=== PATIENT | male | born 1955 | race Two or more races ===

== ENCOUNTER 2018-12-28 13:27 | Observation (INO) | payer MEDICARE ==
[2018-12-28] MEDS ORDERED: VERAPAMIL 2.5 MG/ML 2 ML VIAL ** 5 mg/2 ml ONE (13:36)
[2018-12-28] MEDS ORDERED: nitroGLYCERIN DRIP* 25,000 MCG/250 ML BTL ONE (13:36)
[2018-12-28] MEDS ORDERED: Lidocaine 1% INJ* 10 MG/ML 30 ML SDV ONE (13:36)
[2018-12-28] MEDS ORDERED: Heparin(*) 1000 UNIT/ML 10 ML VIAL CATH LAB IV ONE (13:36)
[2018-12-28] MEDS ORDERED: Midazolam* 1 MG/ML 5 ML VIAL (5 MG) ONE (13:37)
[2018-12-28] MEDS ORDERED: fentaNYL* 50 MCG/ML 2 ML VIAL (100 MCG VIAL) ONE (13:37)
[2018-12-28] MEDS ORDERED: Heparin 2 UNITS/ML IVPREMIX* 3,000 UNIT/1,500 ML BAG IV ONE (13:38)
[2018-12-28] MEDS ORDERED: Iodixanol 320 (CONTRAST) 100 ML SDV ONE (13:40)
--- NOTE | 2018-12-28 13:48 | ED ---
HPI Cardiac - HPI Summary HPI Summary: This patient is a 50 year old male brought in by EMS presenting to [facility] for possible STEMI. STEMI Alert called at 0127 and seen by ED Provider at 0127. EMS reports the patient was found unresponsive and had an apneic period. The patient was conscious and breathing upon arrival. The patient reports back pain and occipital headache. He denies chest pain, vomiting. He states he takes cholesterol medication. He has a Hx of HTN per his . 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, EMS Onset/Duration: Started Minutes Ago Associated Signs and Symptoms: Positive: Back Pain - Risk Factors Cardiac Risk Factors: Hypertension - Allergy/Home Medications Allergies/Adverse Reactions: Allergies Allergy/AdvReac Type Severity Reaction Status Date / Time No Known Drug Allergies Allergy na Verified 12/28/18 14:33 Home Medications: Home Medications Aspirin EC TAB* [Ecotrin EC Low Dose 81 MG*] 81 mg PO DAILY 12/28/18 [History Confirmed 12/28/18] Atorvastatin* [Lipitor*] 40 mg PO QPM 12/28/18 [History Confirmed 12/28/18] Lisinopril/HCTZ 10/12.5(NF) [Zestoretic 10/12.5(NF)] 1 tab PO DAILY 12/28/18 [ History Confirmed 12/28/18] PMH/Surg Hx/FS Hx/Imm Hx Endocrine/Hematology History: Denies: Hx Diabetes Cardiovascular History: Reports: Hx Hypertension Infectious Disease History: Denies: Traveled Outside the [place] in Last 30 Days - Family History Known Family History: Negative: Diabetes - Social History Lives: With Family Hx Substance Use: No Review of Systems Negative: Chest Pain Positive: Other - Apnea, resolved Neurological: Other - LOC, Unresponsive Positive: Headache All Other Systems Reviewed And Are Negative: Yes NIH Scale - NIH Scale Level of Consciousness: Alert/Keenly Responsive Ask Patient the Month and His/Her Age: Both Correct Ask Pt to Open/Close Eyes and [place] Helper/Release Non-Paretic Hand: Both Correctly Best Gaze (Only Horizontal Eye Movement): Normal Visual Field Testing: No Visual Loss Facial Paresis-Pt to Smile & Close Eyes or Grimace Symmetry: Normal/Symmetrical Motor Function - Right Arm: No Drift-Holds 10 Seconds Motor Function - Left Arm: No Drift-Holds 10 Seconds Motor Function - Right Leg: No Drift-Holds 10 Seconds Motor Function - Left Leg: No Drift-Holds 10 Seconds Limb Ataxia-Must be out of Proportion to Weakness Present: Absent Sensory (Use Pinprick to Test Arms/Legs/Trunk/Face): Normal Best Language (Describe Picture, Name Items): No Aphasia Dysarthria (Read Several Words): Normal Extinction and Inattention: No Abnormality Total Score: 0 Physical Exam - Summary Physical Exam Summary: Appearance: The patient is well-nourished in no acute distress and in no acute pain. Skin: The skin is warm and dry and skin color reflects adequate perfusion. HEENT: The head is normocephalic and atraumatic. The pupils are equal and reactive. The conjunctivae are clear and without drainage. Nares are patent and without drainage. Mouth reveals moist mucous membranes and the throat is without erythema and exudate. The external ears are intact. The ear canals are patent and without drainage. The tympanic membranes are intact. Neck: The neck is supple with full range of motion and non-tender. There are no carotid bruits. There is no neck vein distension. Respiratory: Chest is non-tender. Lungs are clear to auscultation and breath sounds are symmetrical and equal. Cardiovascular: Heart is regular rate and rhythm. There is no murmur or rub auscultated. There is no peripheral edema and pulses are symmetrical and equal. Abdomen: The abdomen is soft and non-tender. There are normal bowel sounds heard in all four quadrants and there is no organomegaly palpated. Musculoskeletal: There is no back tenderness noted. Extremities are non-tender with full range of motion. There is good capillary refill. There is no peripheral edema or calf tenderness elicited. Neurological: Patient is alert and oriented to person, place and time. The patient has symmetrical motor strength in all four extremities. Arrived poorly responsive. GCS was seemingly 3, now GCS is 15. Relatively recovered and answering questions.. Psychiatric: The patient has an appropriate affect and does not exhibit any anxiety or depression. Triage Information Reviewed: Yes Vital Signs Reviewed: Yes Diagnostics - Laboratory Result Diagrams: 12/28/18 13:30 12/28/18 13:30 Lab Statement: Any lab studies that have been ordered have been reviewed, and results considered in the medical decision making process. - Radiology CXR Radiology Interpretation Completed By: Radiologist Summary of Radiographic Findings: No active cardiopulmonary disease. ED Provider has reviewed this report. - CT CT Chest/ABD/PEL CT Interpretation Completed By: Radiologist Summary of CT Findings: 1. Diverticulosis. 2. Ectasia of the ascending thoracic aorta. 3. No acute noncontrast CT Pathology of the visualized chest, abdomen, or pelvis. Please note that noncontrast CT is insensitive for the detection of aortic dissection. ED Provider has reviewed this report. CT Cervical Spine CT Interpretation Completed By: Radiologist Summary of CT Findings: No fracture of cervical spine is noted. ED Provider has reviewed this report. CT Brain CT Interpretation Completed By: Radiologist Summary of CT Findings: No active intracranial pathology. ED Provider has reviewed this report. - EKG Transthoracic 1550 Summary of EKG Findings: There is normal left ventricular systolic function. The estimated ejection fraction is 55-60%. Global left ventricular wall motion and contractility are within normal limits. The left ventricular chamber size is normal. The right ventrical is mildly dilated. The right ventricular global systolic function is normal. The right atrium is mildly dilated. No pulmonary hypertnesion is noted. There is mild dilation of the ascending aorta. There is no prior echocardiogram to compare with at this time. Report read and signed by Vikram Cabral MD. ED Provider has reviewed this report. 1329 Cardiac Rate: Bradycardia EKG Rhythm: Sinus Bradycardia Summary of EKG Findings: RBBB, ST-Elevation in septal leads. 1341 Cardiac Rate: Bradycardia EKG Rhythm: Sinus Bradycardia - 58 BPM Summary of EKG Findings: RBBB, St-Elevations in the septal leads. Disposition - Course Course Of Treatment: Mr. Sanchez was brought in by EMS. They called in stating they were called out to see a man who collapsed at work, was diaphoretic and poorly responsive and that they were worried about a STEMI. I was notified and called them back to request an EKG and at that point they said that the patient had coded and that this it turned into a code. An ABC alert was called and the patient was met in room 14. Apparently what actually happened was that the patient became apneic or hypoxic neck and they attempted to place an orogastric tube and he began to be responsive. They were bag assisting his breathing when he came in and he was immediately transferred to our [place] and placed on our monitor. His vitals were stable at that point. He was poorly responsive and not answering questions. The ABC alert was canceled. They did bring an EKG with them which I reviewed immediately and showed some ST elevation in the septal leads. A STEMI was called at that point. While STEMI team was assembling and we were evaluating the patient he began to wake up and suddenly became responsive and reported no chest pain or shortness of breath but rather we're able to piece together the story that he has been having some back pain especially when he stands for a long time at work. Today he had back pain and went outside and then went back inside and that's all he remembers. Clinically he had no evidence for a AAA. Dr. mullen reviewed his EKG and felt that it was likely not a STEMI given the patient's presentation. The brim raiser was used to speak with both the patient and his when she arrived. It appears as though he has recently been started on lisinopril and a statin. The patient's main complaint was here was that he had pain in the back of his head and upper neck. CT scans were obtained and were unremarkable. I could not do CTA as he has renal insufficiency that is worsened. Noncontrasted CT scan was unremarkable. It's unclear exactly what happened my best guess is that he had a combination of dehydration, no lisinopril prescription and some mild vagal from his back pain which caused him to be syncopal. He got some fluid in the emergency department and asked the hospitalist to evaluate him for admission. - Diagnoses Provider Diagnoses: Syncope, Dehydration - Physician Notifications Discussed Care Of Patient With: Tasha Waite - Hospitalist Instructed by Provider To: Admit As Observation - Critical Care Time Critical Care Time: 30-74 min Discharge - Sign-Out/Discharge Documenting (check all that apply): Patient Departure - Admission All imaging exams completed and their final reports reviewed: Yes Patient Received Moderate/Deep Sedation with Procedure: No - Discharge Plan Condition: Stable Disposition: ADMITTED TO [facility] - Billing Disposition and Condition Condition: STABLE Disposition: Admitted to [facility] - Attestation Statements Document Initiated by Scribe: Yes Documenting Scribe: Kiran Diaz Provider For Whom Scribe is Documenting (Include Credential): Primo Abraham MD Scribe Attestation: IKiran, scribed for Primo Abraham MD on 12/28/18 at 2115. Scribe Documentation Reviewed: Yes Provider Attestation: The documentation as recorded by the scribe, Kiran Diaz accurately reflects the service I personally performed and the decisions made by me, Primo Abraham MD Status of Scribe Document: Viewed
[2018-12-28 13:57] LABS: ABS Basophils 0 10^3/ul (0-0.2); ABS Eosinophils 0.2 10^3/ul (0-0.6); ABS Lymphocytes 2.3 10^3/ul (1.0-4.8); ABS Monocytes 0.5 10^3/ul (0-0.8); ABS Neutrophils 4.5 10^3/ul (1.5-7.7); ABS Nucleated RBC 0 10^3/ul; Eosinophil % 2.6 %; Hematocrit 37 % (36-46); Hemoglobin 12.1 g/dL (14.0-18.0); Lymphocyte % 30.6 %; Mean Corpuscular HGB Conc 33 g/dL (31-36); Mean Corpuscular Hemoglobin 27 pg (27-31); Mean Corpuscular Volume 83 fL (80-94); Mean Platelet Volume 7.8 fL (7.4-10.4); Nucleated Red Blood Cells % 0; Platelet Count 348 10^3/uL (150-450); Red Blood Count 4.43 10^6 /uL (4.18-5.48); Red Cell Distribution Width 14 % (10.5-15); White Blood Count 7.6 10^3/uL (3.5-10.8)
[2018-12-28 14:02] LABS: INR 0.93 (0.77-1.02)
[2018-12-28 14:08] LABS: ALT 29 U/L (7-52); AST 25 U/L (13-39); Albumin 4.2 g/dL (3.2-5.2); Albumin/Globulin Ratio 1.3 (1-3); Alkaline Phosphatase 73 U/L (34-104); Anion Gap 8 mmol/L (2-11); Blood Urea Nitrogen 44 mg/dL (6-24); CO2 Carbon Dioxide 21 mmol/L (22-32); Calcium 9.1 mg/dL (8.6-10.3); Chloride 108 mmol/L (101-111); EGFR African American 32.3 (>60); EGFR Non-African American 26.7 (>60); Globulin 3.2 g/dL (2-4); Glucose 116 mg/dL (70-100); Magnesium 2.2 mg/dL (1.9-2.7); Sodium 137 mmol/L (135-145); Total Protein 7.4 g/dL (6.4-8.9)
[2018-12-28 14:09] LABS: Troponin I 0.01 ng/mL (<0.04)
[2018-12-28 14:17] LABS: Alcohol < 10 mg/dL (<10)
[2018-12-28 14:32] LABS: TSH (Thyroid Stimulating Horm) 1.15 mcIU/mL (0.34-5.60)
[2018-12-28] MEDS ORDERED: NS 0.9% 1000 ML** 1,000 ML IV ONE ×2 (14:37→15:11)
[2018-12-28 15:55] LABS: Urine Appearance Clear; Urine Bacteria Absent (Absent); Urine Bilirubin Negative (Negative); Urine Blood Negative (Negative); Urine Color Yellow; Urine Glucose Negative (Negative); Urine Ketones Negative (Negative); Urine Nitrite Negative (Negative); Urine Protein 1+(30 mg/dL) (Negative); Urine Red Blood Cell Trace(0-2/hpf) (Absent); Urine Squamous Epithelial Cell Present (Absent); Urine Urobilinogen Negative (Negative); Urine White Blood Cell Trace(0-5/hpf) (Absent)
--- NOTE | 2018-12-28 16:06 | ECHO ---
Patient: RL LEWIS [facility] Rec#: [id number] : 1955 Date: 12/28/2018 Age: 63y Height: 170 cm / 66.9 in Weight: 54 kg / 119.0 lbs Sex: M BSA: 1.62 Room#: -14 Admit Date#: 12/28/2018 Type: Inpatient Referring: Primo Abraham MD Reading: Vikram Cabral MD Radio Machinist: Anushka Cueto RDCS CC: Karen Moore MD Transthoracic Echocardiogram Indication: Pulmonary embolism BP: 116/74 HR: 56 Rhythm: Bradycardia Findings History: HTN, HLD. Technical Comments: The study quality is good. Completed at 1550. Left Ventricle: The left ventricular chamber size is normal. Global left ventricular wall motion and contractility are within normal limits. There is normal left ventricular systolic function. The estimated ejection fraction is 55-60%. The assessment of diastolic function is non-diagnostic. Left Atrium: The left atrial chamber size is normal. Right Ventricle: Moderator Band present. The right ventricle is mildly dilated. The right ventricular global systolic function is normal. Right Atrium: The right atrium is mildly dilated. Aortic Valve: The aortic valve is trileaflet. The aortic valve leaflets are mildly thickened. There is no evidence of aortic regurgitation. There is no evidence of aortic stenosis. Mitral Valve: The mitral valve leaflets are mildly thickened. There is a trace of mitral regurgitation. Tricuspid Valve: The tricuspid valve leaflets are normal. There is trace to mild tricuspid regurgitation. The right ventricular systolic pressure is estimated at 25 mmHg. No pulmonary hypertension is noted. Pulmonic Valve: The pulmonic valve appears normal. There is no evidence of pulmonic regurgitation. There is no pulmonic stenosis. Pericardium: There is no significant pericardial effusion. Aorta: There is mild dilatation of the ascending aorta. There is no dilatation of the aortic arch. The aortic root is normal in size. Pulmonary Artery: The main pulmonary artery is not well visualized. Venous: The inferior vena cava appears normal in size. There is a greater than 50% respiratory change in the inferior vena cava dimension. Conclusions There is normal left ventricular systolic function. The estimated ejection fraction is 55-60%. Global left ventricular wall motion and contractility are within normal limits. The left ventricular chamber size is normal. The right ventricle is mildly dilated. The right ventricular global systolic function is normal. The right atrium is mildly dilated. No pulmonary hypertension is noted. There is mild dilatation of the ascending aorta. There is no prior echocardiogram available to compare with at this time. Measurements Name Value Normal Range RVIDd (AP) 2D 2.8 cm (0.9 - 2.6) RVDdMajor (2D) 5 cm (2.2 - 4.4) RAd ISD 4CH 5.2 cm (3.4 - 4.9) RA (A4C)W 3.6 cm (2.9 - 4.6) IVSd (2D) 1.1 cm (0.6 - 1) LVPWd (2D) 1.1 cm (0.6 - 1) LVIDd (2D) 4.5 cm (3.6 - 5.4) LVIDs (2D) 3.6 cm - LV FS (2D) 19 % (25 - 45) Aortic Annulus 1.8 cm (1.4 - 2.6) Ao root diameter (2D) 3.5 cm (2.1 - 3.5) Ascending Ao 4 cm (2.1 - 3.4) Aortic arch 2.2 cm (1.8 - 3.4) LA dimension (AP) 2D 2.9 cm (2.3 - 3.8) LAd ISD 4CH 5 cm (2.9 - 5.3) LA ISD 4CH W 4.2 cm (2.5 - 4.5) Name Value Normal Range LA ESV BP (A/L) index 35 ml/m2 - Name Value Normal Range MV E-wave Vmax 0.8 m/sec - MV deceleration time 239 msec - MV A-wave Vmax 1 m/sec - MV E:A ratio 0.8 ratio - LV septal e' Vmax 0.06 m/sec - LV lateral e' Vmax 0.1 m/sec - LV E:e' septal ratio 13.3 ratio - LV E:e' lateral ratio 8 ratio - Name Value Normal Range AV Vmax 1.7 m/sec - AV VTI 32 cm - AV peak gradient 12 mmHg - AV mean gradient 4 mmHg - LVOT Vmax 0.9 m/sec - LVOT VTI 21 cm - LVOT peak gradient 4 mmHg - LVOT mean gradient 2 mmHg - Name Value Normal Range TR Vmax 2.3 m/sec - TR peak gradient 22 mmHg - RAP 3 mmHg - RVSP 25 mmHg - IVC diameter 1.5 cm - Name Value Normal Range PV Vmax 1 m/sec - PV peak gradient 4 mmHg -
[2018-12-28] MEDS ORDERED: Acetaminophen TAB* 325 MG PO PRN (16:59)
[2018-12-28] MEDS ORDERED: NS 0.9% 1000 ML** 1,000 ML IV SCH (17:00)
[2018-12-28] MEDS ORDERED: Atorvastatin* 40 MG TAB PO SCH (18:00)
--- NOTE | 2018-12-28 20:21 | HP ---
CC: Dr. Moore * HISTORY AND PHYSICAL: DATE OF ADMISSION: 12/28/18 PRIMARY CARE PROVIDER: Dr. Moore. ATTENDING PHYSICIAN WHILE IN THE HOSPITAL: Tasha Waite DO * (dictated by Kofi Nicolas NP) CHIEF COMPLAINT: 1. Syncope. 2. Neck pain. HISTORY OF PRESENT ILLNESS: Mr. Sanchez is a 63-year-old male with a past medical history significant for hypertension, neck and upper back pain, cholesterol who presented to the emergency room by EMS after possible syncopal episode. 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 Sometimes his upper back and neck pain is worse than others. Due to the increased neck pain, he went outside to stretch and did some exercises. He returned back to the kitchen to prepare some food in the restaurant and then had a syncopal episode where a worker next to him caught him and lowered him to the ground. The patient states that he does not remember any of the events after that. He reports that he laid on the ground for approximately 2 to 3 minutes until EMS arrived and then was brought to the emergency room. He remembers seeing lights in the ambulance, but does not remember full course of details of riding to the hospital in the ambulance. The patient denies any dizziness or lightheadedness prior to the syncopal episode. He denies feeling any fatigue. Denies any recent illnesses. Denies any fever, chill, chest pain, edema, cough, hemoptysis, or shortness of breath. Denies any nausea, vomiting, diarrhea, abdominal pain, hematuria, dysuria. Denies any frequent weakness on 1 side. Denies any visual complaints, dysphagia , arthralgias, myalgias, rashes, lesions, or open sores. The patient reports that he was in his normal state of health this morning. He also reports that he recently started a new blood pressure med approximately 2 weeks ago. En route to the emergency room, EMS called the patient as an ABC alert and due to the patient having agonal respirations and an episode of apnea, the patient was then changed to a STEMI and STEMI was called when the patient arrived at the hospital. Dr. Dockery came down to evaluate the patient and the STEMI was canceled. The patient had routine lab work drawn and an EKG. Lab work showed a BUN and creatinine of 44 and 2.45, which is elevated from his baseline. His troponin was 0.01. The patient reports that his neck pain and upper back pain have subsided since being in the emergency room. Again, denied any chest pain. Denied any shortness of breath. Denied any fever or chills. He denies any dizziness prior to his syncopal episode. Due to his syncope, we were asked to see and evaluate him for admission. PAST MEDICAL HISTORY: 1. Hypertension. 2. Back pain. 3. Hypercholesterolemia. PAST SURGICAL HISTORY: No surgical history. HOME MEDICATIONS: Include: 1. Aspirin 81 mg p.o. daily. 2. Atorvastatin 40 mg p.o. q.p.m. 3. Lisinopril/hydrochlorothiazide 10/12.5 one tablet p.o. daily. ALLERGIES: No known drug allergies. FAMILY HISTORY: Reviewed and noncontributory. SOCIAL HISTORY: The patient reports that he quit smoking approximately 6 months ago. Prior to that, he smoked a half a pack to 3 quarters of pack a day for 40 years. He also reports that he used to drink daily. He quit drinking 6 months ago. Denies any illicit drug use. He works at a restaurant. He is . Surrogate decision maker in the event he is unable to make his own decisions is his or his boss. He is a full code. REVIEW OF SYSTEMS: He denies any fever, chills, unintended weight loss. Denies any chest pain or edema. No cough, hemoptysis, or shortness of breath. No nausea, vomiting, diarrhea, or abdominal pain. No gross hematuria or dysuria. Denies any weakness or sensory loss. Denies any visual complaints. No dysphagia, arthralgias, myalgias, rashes, lesions, open sores. Denies any psychosis or anxiety. PHYSICAL EXAMINATION GENERAL: At this time, Mr. Sanchez is a 63-year-old male. He is resting on the stretcher in the emergency room. He is in no acute distress. He is alert and oriented x3. VITAL SIGNS: 151/80, heart rate is 65, respirations 16, O2 saturation 100% on room air, temperature was 97.5. HEENT: Head is atraumatic, normocephalic. Eyes: EOMs are intact. Sclerae anicteric and not pale. Oral mucosa appeared to be moist. Pupils are equal and reactive to light. NECK: Supple. No C spine tenderness. LUNGS: Clear to auscultation bilaterally. No wheezes, rales, or rhonchi. CARDIAC: S1, S2. Regular rate and rhythm. No murmurs, rubs, or gallops. ABDOMEN: Soft and nontender. Bowel sounds are present x4. EXTREMITIES: Pedal pulses are +2 bilaterally. He is able to move all 4 extremities with 5/5 strength. He has no lower extremity edema. NEUROLOGIC: He is awake, alert, oriented x3. Speech is clear. Thought process intact. Handgrips are equal. Smile is equal. Tongue is midline. There is no facial asymmetry. No pronator drift. Leg strength is equal. Push- pull is intact. Cranial nerves II through XII are grossly intact. SKIN: Intact. DIAGNOSTIC STUDIES/LAB DATA: WBCs are 7.6, RBCs 4.43, hemoglobin 12.1, hematocrit was 37, platelet count was 348. INR was 0.93. Sodium 137, potassium 5.0, chloride 108, carbon dioxide was 21, anion gap was 8, BUN was 44 , creatinine 2.45, glucose 116. Lactic acid 0.9. Calcium 9.1. Magnesium 2.2. T-bili was 0.30, ASTs were 25, ALTs were 29, alkaline phosphatase was 73. Troponin was 0.01. TSH was 1.15. Urine was within normal limits except for protein that was 1+ and squamous epithelial cells were present. Serum alcohol was less than 10. Transthoracic echocardiogram was completed. Normal left ventricular systolic function, estimated ejection fraction of 55% to 60%, the global left ventricular wall motion and contractility are within normal limits, left ventricular chamber size is normal, right ventricle is mildly dilated, the right ventricular global systolic function was normal, right atrium is mildly dilated, no pulmonary hypertension was noted, there is mild dilation of the ascending aorta. There is no prior echo to compare. He had a CT of the chest, abdomen, and pelvis, radiologist's impression: Diverticulosis, ectasia of the ascending thoracic aorta, no acute noncontrast CT pathology to visualize of the chest, abdomen, and pelvis. Please note this noncontrast CT is insensitive for detection of aortic dissection. He had a CT of the C spine, no fracture of the cervical spine. He had a chest x- ray, radiologist's impression: No active cardiopulmonary disease. He had a CT of the brain, no acute intracranial pathology. He had an EKG, which showed sinus bradycardia at a rate of 58 with a right bundle-branch block, peak Ts. ASSESSMENT AND PLAN: Mr. Sanchez is a 63-year-old male with a past medical history of hypertension, hyperlipidemia who presented to the emergency room after a suspected syncopal episode while at work. He will be admitted under observation for: 1. Syncope. Unclear cause of his syncopal episode. I will check orthostatic vital signs. We will monitor him on telemetry overnight. He did have a transthoracic echocardiogram, which was within normal limits. At this time, the patient has no further episodes. He has no neuro deficits. 2. Acute kidney injury. The patient does have a bump in his BUN and creatinine off of his baseline. We will give him IV hydration. I will repeat a BMP in the a.m. I suspect this is related to mild dehydration and possibly in combination of starting lisinopril with hydrochlorothiazide. 3. Hypertension. I am going to hold his lisinopril with hydrochlorothiazide at this time. 4. Hyperlipidemia. We will continue his atorvastatin as previously prescribed. 5. FEN. He can have a regular diet. 6. Code status is full code. 7. DVT prophylaxis. I will place him on heparin subcu. 8. Disposition. He will be placed on telemetry as observation. TIME SPENT: Time spent on this admission was 60 minutes, greater than half the time was spent at the bedside reviewing events leading thus far to his hospitalization, performing my physical exam, and implementing my plan of care. I have discussed this with my attending, Dr. Tasha Waite; she is in agreement with my plan. KOFI NICOLAS, IMPROVEMENT NURSE [id number]/[facility] #: [id number] [place]
[2018-12-28] MEDS: Heparin VIAL(*) 5000 UNITS/ML VIAL (FIVE THOUSAND) SUBCUT SCH (22:03)
[2018-12-29] MEDS: Heparin VIAL(*) 5000 UNITS/ML VIAL (FIVE THOUSAND) SUBCUT SCH (05:17)
[2018-12-29 07:01] LABS: BUN/Creatinine Ratio 19.4 (8-20); Calcium 8.4 mg/dL (8.6-10.3); EGFR African American 50.9 (>60); EGFR Non-African American 42.1 (>60); HDL Cholesterol 50.1 mg/dL; Potassium 4.8 mmol/L (3.5-5.0)
[2018-12-29] MEDS ORDERED: Aspirin EC TAB* 81 MG TAB.EC PO SCH (09:00)
[2018-12-29 12:17] VITALS: BP 143/74
--- NOTE | 2018-12-30 23:00 | DS ---
CC: Dr. Moore * DISCHARGE SUMMARY: DATE OF ADMISSION: 12/28/18 DATE OF DISCHARGE: 12/29/18 PRIMARY CARE PHYSICIAN: Dr. Moore. DISPOSITION ON DISCHARGE: Good, home. PRIMARY DIAGNOSES: Include: 1. Syncope. 2. Acute on chronic kidney disease. SECONDARY DIAGNOSES: Include: 1. Hypertension. 2. Chronic back pain. 3. Hypercholesterolemia. MEDICATIONS ON DISCHARGE: Include: 1. Aspirin 81 mg daily. 2. Atorvastatin 40 mg in the evening. 3. Combination of lisinopril/hydrochlorothiazide 10/12.5 mg 1 tab daily. PERTINENT LABORATORY DATA: Creatinine on presentation 2.45, decreased to 1.65 at the time of discharge. Received additional fluid in addition prior to discharge. Troponin I 0.01 on 3 consecutive checks. TSH 1.15. Total cholesterol 137, LDL 77, HDL is 50. Urine tox negative for alcohol. PERTINENT IMAGING STUDIES: Chest, abdomen, and pelvis CT, impression: Diverticulosis, ectasia of the ascending thoracic aorta. No acute noncontrast CT pathology of the visualized chest, abdomen, or pelvis. Brain CT: No acute intracranial pathology. CT cervical spine, impression: No fractures of the cervical spine are noted. HISTORY OF PRESENT ILLNESS AND HOSPITAL COURSE: This is a 63-year-old Croatian male , primary language is Croatian, who presented to the hospital with syncope, en route , was noticed to have what was thought to be agonal breathing with CPR started, discontinued upon admission, which was then thought to be a STEMI upon arrival, which ultimately was not a STEMI. He was then admitted to the hospitalist service after both ABC and STEMI alerts were canceled. 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 Ultimately, there was no documented cardiac arrest nor ST elevated SC, certainly corroborated by normal labs as indicated above and negative troponins. In addition, a transthoracic echocardiogram was performed, which was not detailed above, now detailed here; LVEF is 50% to 60%, normal LV systolic function, global wall motion and contractility are normal, mildly dilated right ventricle with normal systolic function, otherwise normal valves. He received fluid for what was thought to be dehydration in the setting of MONIKA with improvement as indicated above. He was able to ambulate around the unit. He had no complaints including absence of pain despite brief CPR. syncopal episode after prolonged episode of standing on his feet upwards of 10 hours at work without drinking any fluid. He was counseled to stay hydrated, sit occasionally, potentially use compression stockings. He acknowledges understanding. Conversation was had using telephone track announcer with both patient and his . All questions were answered. At followup please; 1. Evaluate BMP in the future at your discretion, although on discharge, creatinine is baseline per our records. 2. No other specific labs or vitals that need followup. Urine culture is negative. Reasons to return to the hospital include, but are not limited to recurrent or worsening symptoms, chest pain, shortness of breath, nausea, vomiting, lightheadedness, loss of consciousness or near loss of consciousness, bleeding from any source, inability to obtain or tolerate medications discussed with the patient and his . They acknowledged understanding. TIME SPENT: Greater than 45 minutes were spent on discharge of this patient, of which greater than half was spent [id number] with the patient. [id number] #: [id number]
== END 2018-12-29 12:17 | disposition home or self-care (01) ==
LOC: ED 13:27 → MEDTELE 16:59
PROVIDERS: ADMIT Hospitalist; ATTEND Internal Medicine
DX: R55 Syncope and collapse (principal); N18.9 Chronic kidney disease, unspecified; I10 Essential (primary) hypertension; M54.9 Dorsalgia, unspecified; G89.29 Other chronic pain; E78.00 Pure hypercholesterolemia, unspecified; Z79.82 Long term (current) use of aspirin; M54.2 Cervicalgia
CPT/HCPCS: 36415; 70450; 71045; 71250; 72125; 74176; 80048; 80053; 80061; 80320; 81003; 81015; 83605; 83735; 84443; 84484; 85025; 85610; 87086; 93005; 93306; 96374; 99284; A9270-GY; G0378; G0480; J1644; J2250; J3010

== ENCOUNTER 2019-01-14 15:54 | Emergency (ER) | payer MEDICARE ==
[2019-01-14] MEDS ORDERED: Lidocaine PATCH 5%* 1 PATCH TRANSDERM ONE (17:15)
[2019-01-14] MEDS ORDERED: Acetaminophen TAB* 325 MG PO ONE (17:15)
--- NOTE | 2019-01-14 17:44 | ED ---
Neck Pain - HPI Summary HPI Summary: 64 year old male presents with neck pain today. He states he is looking down for a long period of time and looked up and felt some pain in his neck. He denies any weakness. No numbness or tingling. No chest pain or shortness of breath. Denies any history of neck pain. States he has full range of motion his neck and pain has been improving. Denies any visual changes or headache. Hasn't taking anything for symptoms. - History of Current Complaint Chief Complaint: EDNeckComplaint Stated Complaint: NECK PAIN PER PT Time Seen by Provider: 01/14/19 17:01 Pain Intensity: 5 - Allergies/Home Medications Allergies/Adverse Reactions: Allergies Allergy/AdvReac Type Severity Reaction Status Date / Time No Known Drug Allergies Allergy na Verified 12/28/18 14:33 PMH/Surg Hx/FS Hx/Imm Hx Endocrine/Hematology History: Denies: Hx Diabetes Cardiovascular History: Reports: Hx Hypertension Sensory History: Denies: Hx Contacts or Glasses, Hx Hearing Aid Opthamlomology History: Denies: Hx Contacts or Glasses Infectious Disease History: No Infectious Disease History: Denies: Traveled Outside the [place] in Last 30 Days - Family History Known Family History: Positive: Non-Contributory Negative: Diabetes - Social History Alcohol Use: None Hx Substance Use: No Substance Use Type: Reports: None Smoking Status (MU): Former Smoker Review of Systems Negative: Fever Negative: Chest Pain Negative: Shortness Of Breath Positive: Myalgia - neck pain All Other Systems Reviewed And Are Negative: Yes Physical Exam Triage Information Reviewed: Yes Vital Signs On Initial Exam: Initial Vitals Temp Pulse Resp BP Pulse Ox 98.6 F 76 16 127/74 98 01/14/19 15:59 01/14/19 15:59 01/14/19 15:59 01/14/19 15:59 01/14/19 15:59 Vital Signs Reviewed: Yes Appearance: Positive: Well-Appearing Skin: Positive: Warm, Dry Head/Face: Positive: Normal Head/Face Inspection Eyes: Positive: Normal, Conjunctiva Clear ENT: Positive: Pharynx normal Respiratory/Lung Sounds: Positive: Clear to Auscultation, Breath Sounds Present Cardiovascular: Positive: Normal, RRR Musculoskeletal: Positive: Strength/ROM Intact - neck, Other - tenderness lower neck, good pulses, good raw hide trimmer strength, sensation grossly intact arm, full ROM arm and neck Neurological: Positive: Normal Psychiatric: Positive: Normal Diagnostics - Vital Signs Vital Signs Temp Pulse Resp BP Pulse Ox 01/14/19 15:59 98.6 F 76 16 127/74 98 - Laboratory Lab Statement: Any lab studies that have been ordered have been reviewed, and results considered in the medical decision making process. - Radiology neck Radiology Interpretation Completed By: Radiologist Summary of Radiographic Findings: IMPRESSION: DEGENERATIVE DISC DISEASE. Neck Course/Dx - Course Course Of Treatment: 64 year old male presents with neck pain today. He states he is looking down for a long period of time and looked up and felt some pain in his neck. He denies any weakness. No numbness or tingling. No chest pain or shortness of breath. Denies any history of neck pain. States he has full range of motion his neck and pain has been improving. Denies any visual changes or headache. Hasn't taking anything for symptoms. On exam has mild tenderness over lower neck. Full range of motion. neurovascular intact. X-ray shows degenerative changes. gave lidocaine patch and Tylenol and pain resolved. Kyree prescribe lidocaine patch. willl have follow-up with primary. Patient understands agrees with plan. - Diagnoses Differential Dx/HQI/PQRI: Positive: Sprain, Strain Provider Diagnoses: Neck pain Discharge - Sign-Out/Discharge Documenting (check all that apply): Patient Departure Patient Received Moderate/Deep Sedation with Procedure: No - Discharge Plan Condition: Good Disposition: HOME Prescriptions: Lidocaine PATCH 5%* [Lidoderm 5% Patch*] 1 patch TRANSDERM DAILY #6 patch Patient Education Materials: Neck Pain (ED) Referrals: Karen Moore MD [Primary Care Provider] - Additional Instructions: Apply lidocaine patches to area for up to 12 hours in one 24 hour period Use Tylenol for pain every 6 hours ice/heat area, move as much as possible Follow up with primary within 5 days Return to ED if develop any new or worsening symptoms - Billing Disposition and Condition Condition: GOOD Disposition: Home
[2019-01-14 18:11] VITALS: BP 134/72
[2019-01-14] MEDS ORDERED: Lidocaine Patch REMOVE* 1 NOTE MISC SCH (21:00)
== END 2019-01-14 18:09 | disposition home or self-care (01) ==
LOC: ED 15:54
DX: M54.2 Cervicalgia (principal); I10 Essential (primary) hypertension
CPT/HCPCS: 72050; 99282; A9270-GY